=== PATIENT | female | born 1990 | race Native Hawaiian/Other Pacific Islander ===

== ENCOUNTER 2018-12-03 09:32 | Outpatient (CLI) | payer MEDICAID ==
[2018-12-03 11:16] LABS: Hematocrit 38.2 % (30.3-42.9); Hemoglobin 12.6 gm/dl (10.1-14.3); Mean Corpuscular HGB Conc 33 % (30-34); Mean Corpuscular Volume 78 fl (79-97); Platelet Count 190 K/mm3 (140-440); Red Cell Distribution Width 15.3 % (13.2-15.2)
[2018-12-03 11:39] LABS: Alanine Aminotransferase 11 units/L (7-56); Albumin 4.2 g/dL (3.9-5); BUN/Creatinine Ratio 15; Blood Urea Nitrogen 9 mg/dL (7-17); Calcium 8.7 mg/dL (8.4-10.2); HDL Cholesterol 43 mg/dL (40-59); Hemolysis Index 0; LDL Cholesterol,Direct 100 mg/dL (50-130)
== END 2018-12-03 09:33 | disposition home or self-care (01) ==
LOC: LAB 09:32
PROVIDERS: ATTEND Internal Medicine
DX: Z00.01 Encounter for general adult medical examination with abnormal findings (principal); R73.9 Hyperglycemia, unspecified; E66.9 Obesity, unspecified; E28.2 Polycystic ovarian syndrome
CPT/HCPCS: 36415; 80053; 80061; 83001; 83036; 84146; 84443; 85027

== ENCOUNTER 2020-04-13 11:38 | Outpatient (CLI) | payer MEDICAID ==
[2020-04-13 12:33] LABS: Basophils % (Auto) 0.4 % (0.0-1.8); Hematocrit 41.7 % (30.3-42.9); Hemoglobin 13.6 gm/dl (10.1-14.3); Lymphocytes # (Auto) 1.5 K/mm3 (1.2-5.4); Lymphocytes % (Auto) 41.1 % (13.4-35.0); Mean Corpuscular HGB Conc 33 % (30-34); Mean Corpuscular Volume 80 fl (79-97); Monocytes # (Auto) 0.3 K/mm3 (0.0-0.8); Monocytes % (Auto) 8.2 % (0.0-7.3); Platelet Count 209 K/mm3 (140-440); Red Blood Count 5.25 M/mm3 (3.65-5.03); Red Cell Distribution Width 14.4 % (13.2-15.2)
[2020-04-13 12:59] LABS: Alanine Aminotransferase 14 units/L (7-56); Albumin 4.4 g/dL (3.9-5); Blood Urea Nitrogen 11 mg/dL (7-17); Calcium 9.3 mg/dL (8.4-10.2); Chol/HDL Ratio 3.68 %; HDL Cholesterol 50 mg/dL (40-59); Hemolysis Index 2; LDL Cholesterol,Direct 127 mg/dL (50-130)
[2020-04-13 13:00] LABS: BUN/Creatinine Ratio 16
== END 2020-04-13 11:39 | disposition home or self-care (01) ==
LOC: LAB 11:38
PROVIDERS: ATTEND Internal Medicine
DX: Z00.00 Encounter for general adult medical examination without abnormal findings (principal); E28.2 Polycystic ovarian syndrome; R73.9 Hyperglycemia, unspecified; Z13.9 Encounter for screening, unspecified; Z13.220 Encounter for screening for lipoid disorders; E56.9 Vitamin deficiency, unspecified
CPT/HCPCS: 36415; 80053; 80061; 82306; 82607; 83036; 84443; 85025

== ENCOUNTER 2020-11-06 08:47 | Outpatient (CLI) | payer MEDICAID ==
[2020-11-06 09:36] LABS: Basophils % (Auto) 0.4 % (0.0-1.8); Eosinophils # (Auto) 0.1 K/mm3 (0.0-0.4); Hematocrit 37.6 % (30.3-42.9); Hemoglobin 12.5 gm/dl (10.1-14.3); Lymphocytes # (Auto) 2.4 K/mm3 (1.2-5.4); Lymphocytes % (Auto) 50.8 % (13.4-35.0); Mean Corpuscular HGB Conc 33 % (30-34); Mean Corpuscular Volume 80 fl (79-97); Monocytes # (Auto) 0.5 K/mm3 (0.0-0.8); Monocytes % (Auto) 9.6 % (0.0-7.3); Platelet Count 193 K/mm3 (140-440); Red Blood Count 4.68 M/mm3 (3.65-5.03); Red Cell Distribution Width 14.1 % (13.2-15.2)
== END 2020-11-06 08:48 | disposition home or self-care (01) ==
LOC: LAB 08:47
PROVIDERS: ATTEND Internal Medicine
DX: R53.83 Other fatigue (principal)
CPT/HCPCS: 36415; 84443; 85025

== ENCOUNTER 2021-01-20 17:12 | Emergency (ER) | payer MEDICAID ==
[2021-01-20] MEDS ORDERED: SODIUM CHLORIDE 0.9% IRR 500 ML BOTTLE IR ONE (17:44)
[2021-01-20] MEDS ORDERED: HYDROmorphone 1 MG/1 ML INJ IM ONE (17:44)
[2021-01-20] MEDS ORDERED: TETANUS,DIPH,PERTUSS(ACELL) VACCINE 0.5 ML SYRINGE IM ONE (17:44)
[2021-01-20] MEDS ORDERED: LIDOCAINE (1%) 10 MG/1 ML VIAL 20 ML MDV INFILTRATI ONE (17:44)
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
[2021-01-20] MEDS ORDERED: HYDROGEN PEROXIDE 118 ML SOLUTION TP ONE (18:43)
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
[2021-01-20] MEDS ORDERED: POVIDONE-IODINE OINTMENT 28.35 GM TP SCH (20:00)
[2021-01-20] MEDS ORDERED: ACETAMINOPHEN 500 MG TAB PO ONE (20:12)
[2021-01-20] MEDS ORDERED: IBUPROFEN 400 MG TAB PO ONE (20:12)
[2021-01-20 20:53] VITALS: BP 127/81
== END 2021-01-20 21:07 ==
LOC: ED 17:12
DX: S40.212A Abrasion of left shoulder, initial encounter (principal); S50.812A Abrasion of left forearm, initial encounter; M25.522 Pain in left elbow; M79.644 Pain in right finger(s); Z79.1 Long term (current) use of non-steroidal anti-inflammatories (NSAID); Z79.899 Other long term (current) drug therapy; V49.49XA Driver injured in collision with other motor vehicles in traffic accident, initial encounter; Y93.89 Activity, other specified; Y92.410 Unspecified street and highway as the place of occurrence of the external cause; Y99.8 Other external cause status
CPT/HCPCS: 29130; 71046; 73070; 73130; 90471; 90715; 96372; 99284; J1170

== ENCOUNTER 2021-12-19 11:45 | Outpatient (CLI) | payer MEDICAID ==
[2021-12-19 12:43] LABS: Basophils % (Auto) 0.3 % (0.0-1.8); Eosinophils # (Auto) 0.1 K/mm3 (0.0-0.4); Eosinophils % (Auto) 1.2 % (0.0-4.3); Hematocrit 37.9 % (30.3-42.9); Hemoglobin 12.8 gm/dl (10.1-14.3); Lymphocytes # (Auto) 1.8 K/mm3 (1.2-5.4); Lymphocytes % (Auto) 37.1 % (13.4-35.0); Mean Corpuscular HGB Conc 34 % (30-34); Mean Corpuscular Volume 77 fl (79-97); Monocytes # (Auto) 0.4 K/mm3 (0.0-0.8); Monocytes % (Auto) 7.9 % (0.0-7.3); Platelet Count 186 K/mm3 (140-440); Red Cell Distribution Width 14.7 % (13.2-15.2)
[2021-12-19 12:59] LABS: Alanine Aminotransferase 14 units/L (7-56); Albumin 4.3 g/dL (3.9-5); Blood Urea Nitrogen 12 mg/dL (7-17); Calcium 9.2 mg/dL (8.4-10.2); Chol/HDL Ratio 3.88 %; HDL Cholesterol 45 mg/dL (40-59); Hemolysis Index 0; LDL Cholesterol,Direct 111 mg/dL (50-130)
[2021-12-19 13:02] LABS: BUN/Creatinine Ratio 24
== END 2021-12-19 11:46 | disposition home or self-care (01) ==
LOC: LAB 11:45
PROVIDERS: ATTEND Internal Medicine
DX: Z00.00 Encounter for general adult medical examination without abnormal findings (principal); E55.9 Vitamin D deficiency, unspecified; R53.83 Other fatigue; R73.9 Hyperglycemia, unspecified; E66.9 Obesity, unspecified
CPT/HCPCS: 36415; 80053; 80061; 82306; 83036; 84443; 85025

== ENCOUNTER 2022-04-04 15:15 | Emergency (ER) | payer MEDICAID ==
[2022-04-04] MEDS ORDERED: diphenhydrAMINE 25 MG CAP PO ONE (17:38)
[2022-04-04] MEDS ORDERED: hydrOXYzine PAMOATE 25 MG CAP PO ONE (20:59)
[2022-04-04] MEDS ORDERED: FAMOTIDINE 20 MG TAB PO ONE (20:59)
[2022-04-04] MEDS ORDERED: methylPREDNISolone Sod Succinate 125 MG/2 ML INJ IM ONE (20:59)
--- NOTE | 2022-04-04 21:43 | Emergency Department Report ---
ED Allergic Reaction HPI - General Chief complaint: Allergic Reaction Stated complaint: ALLERGY REACTION Source: patient Mode of arrival: Ambulatory Limitations: No Limitations - History of Present Illness Initial Comments: Patient is a 32-year-old female with no past medical history who presents to the ED with complaint of acute onset persistent diffuse itchy erythematous maculopapular urticarial rashes intermittently for the last 3 weeks. Patient states that she is unaware of anything she may have been exposed to that caused her to have the symptoms. Patient states that she was initially evaluated and treated by her primary care physician who gave her a Dosepak of steroids, topical steroid steroids and Benadryl. Patient states that she finished these medications but the itching and rash have continued to be persistent. Patient denies swollen lips or tongue, dysphagia, dysphonia, sore throat, nausea and vomiting, diarrhea, abdominal pain, chest pain or shortness of breath or wheezing. MD Complaint: allergic reaction, hives, other (Diffuse itchy erythematous maculopapular rashes intermittently) -: Gradual, week(s) (3) Exposure: unknown Symptoms: rash, itching. denies: facial swelling, lip swelling, difficulty swallowing, difficulty breathing, orolingual swelling, hoarseness, syncopy, other Severity: moderate Treatment Prior to Arrival: benadryl Previous Allergy History: none - Related Data Previous Rx's Medication Instructions Recorded Last Taken Type Acetaminophen [Non-Aspirin Extra 500 mg PO Q6HR PRN #30 tablet 01/20/21 Unknown Rx Strength] Ibuprofen [Motrin] 600 mg PO Q8H PRN #30 tablet 01/20/21 Unknown Rx Famotidine [Pepcid] 20 mg PO BID #60 tablet 04/04/22 Unknown Rx hydrOXYzine PAMOATE [Vistaril] 50 mg PO Q8HR PRN #40 capsule 04/04/22 Unknown Rx predniSONE [Deltasone] 60 mg PO QDAY #15 tab 04/04/22 Unknown Rx Allergies Allergy/AdvReac Type Severity Reaction Status Date / Time No Known Allergies Allergy Verified 04/04/22 15:33 ED Review of Systems ROS: Stated complaint: ALLERGY REACTION Other details as noted in HPI Constitutional: denies: chills, fever Eyes: denies: eye pain, eye discharge, vision change ENT: denies: ear pain, throat pain Respiratory: denies: cough, shortness of breath, wheezing Cardiovascular: denies: chest pain, palpitations Endocrine: no symptoms reported Gastrointestinal: denies: abdominal pain, nausea, diarrhea Genitourinary: denies: urgency, dysuria, discharge Musculoskeletal: denies: back pain, joint swelling, arthralgia Skin: rash (Diffuse itchy erythematous maculopapular urticarial rashes), change in color, pruritus. denies: lesions, other Neurological: denies: headache, weakness, paresthesias Psychiatric: denies: anxiety, depression Hematological/Lymphatic: denies: easy bleeding, easy bruising ED Past Medical Hx - Social History Smoking Status: Never Smoker Substance Use Type: None - Medications Home Medications: Home Medications Medication Instructions Recorded Confirmed Last Taken Type Acetaminophen [Non-Aspirin Extra 500 mg PO Q6HR PRN #30 tablet 01/20/21 Unknown Rx Strength] Ibuprofen [Motrin] 600 mg PO Q8H PRN #30 tablet 01/20/21 Unknown Rx Famotidine [Pepcid] 20 mg PO BID #60 tablet 04/04/22 Unknown Rx hydrOXYzine PAMOATE [Vistaril] 50 mg PO Q8HR PRN #40 capsule 04/04/22 Unknown Rx predniSONE [Deltasone] 60 mg PO QDAY #15 tab 04/04/22 Unknown Rx ED Physical Exam - General Limitations: No Limitations General appearance: alert, in no apparent distress - Head Head exam: Present: atraumatic, normocephalic, normal inspection - Eye Eye exam: Present: normal appearance, PERRL, EOMI Pupils: Present: normal accommodation - ENT ENT exam: Present: normal exam, normal orophraynx, mucous membranes moist, TM's normal bilaterally, normal external ear exam - Neck Neck exam: Present: normal inspection, full ROM - Respiratory Respiratory exam: Present: normal lung sounds bilaterally. Absent: respiratory distress, wheezes, rales, rhonchi, stridor, chest wall tenderness, accessory muscle use, decreased breath sounds, prolonged expiratory - Cardiovascular Cardiovascular Exam: Present: regular rate, normal rhythm, normal heart sounds. Absent: systolic murmur, diastolic murmur, rubs, gallop - GI/Abdominal GI/Abdominal exam: Present: soft, normal bowel sounds. Absent: distended, tenderness, guarding, rebound, rigid, hyperactive bowel sounds, hypoactive bowel sounds, organomegaly, mass, bruit - Extremities Exam Extremities exam: Present: normal inspection, full ROM, normal capillary refill. Absent: tenderness - Back Exam Back exam: Present: normal inspection, full ROM. Absent: tenderness, CVA tenderness (R), CVA tenderness (L), muscle spasm, paraspinal tenderness, vertebral tenderness - Neurological Exam Neurological exam: Present: alert, oriented X3, CN II-XII intact, normal gait, reflexes normal - Psychiatric Psychiatric exam: Present: normal affect, normal mood - Skin Skin exam: Present: warm, dry, intact, rash (Diffuse erythematous maculopapular urticarial rashes), erythema, urticaria. Absent: normal color ED Course Vital Signs 04/04/22 15:28 Temperature 98 F Pulse Rate 96 H Respiratory 18 Rate Blood Pressure 123/80 [Right] O2 Sat by Pulse 98 Oximetry ED Medical Decision Making - Medical Decision Making This is a 32-year-old female with no past medical history who presents to the ED with complaint of acute onset persistent diffuse itchy erythematous maculopapular urticarial rashes intermittently for the last 3 weeks. Patient states that she is unaware of anything she may have been exposed to that caused her to have the symptoms. Patient states that she was initially evaluated and treated by her primary care physician who gave her a Dosepak of steroids, topical steroid steroids and Benadryl. Patient states that she finished these medications but the itching and rash have continued to be persistent. In the ED, patient is alert and oriented x3 and is not in any distress. Patient is hemodynamically stable. Patient was treated for acute allergic reaction with Solu-Medrol 125 mg intramuscular injection, also treated with Vistaril and Pepcid. On reevaluation, patient itching resolved and patient was discharged home on medications and advised to follow-up with her primary care physician in 7 to 10 days for reevaluation. Patient was also advised to consult an contract administration specialist to determine what she may be allergic to. Patient is advised return to the ED immediately if symptoms get worse. - Differential Diagnosis Allergic reaction; urticaria; anaphylaxis; angioedema; irritant dermatitis Critical care attestation.: If time is entered above; I have spent that time in minutes in the direct care of this critically ill patient, excluding procedure time. ED Disposition Clinical Impression: Acute allergic reaction, Acute urticaria, Itching with irritation Disposition: / SELF CARE / HOMELESS Is pt being admited?: No Does the pt Need Aspirin: No Condition: Stable Instructions: Rash, Adult, [id number], Hives, [id number], Allergies, Adult, [id number] Additional Instructions: Take medication with food, drink plenty of fluids, follow-up with your primary care physician in 7 to 10 days for reevaluation. Return to the ED immediately if symptoms get worse with Prescriptions: predniSONE [Deltasone] 60 mg PO QDAY #15 tab Famotidine [Pepcid] 20 mg PO BID #60 tablet hydrOXYzine PAMOATE [Vistaril] 50 mg PO Q8HR PRN #40 capsule PRN Reason: Itching Referrals: GAUTAM SOFIA MD [Primary Care Provider] - 3-5 Days Time of Disposition: 21:44 Print Language: PANAMANIAN
[2022-04-04 21:53] VITALS: BP 128/86
== END 2022-04-04 21:53 | disposition home or self-care (01) ==
LOC: ED 15:15
DX: T78.40XA Allergy, unspecified, initial encounter (principal); X58.XXXA Exposure to other specified factors, initial encounter; L50.9 Urticaria, unspecified; L29.9 Pruritus, unspecified
CPT/HCPCS: 96372; 99282; J2930